=== PATIENT | male | born 1985 | race Two or more races ===

== ENCOUNTER 2018-06-19 06:06 | Emergency (ER) | payer OTHER ==
[~2018-06-19] VITALS: Ht 165.1 cm; Wt 68.0 kg
[2018-06-19 06:14] VITALS: BP 163/95
== END 2018-06-19 06:39 | disposition left against medical advice (07) ==
LOC: ER 06:06
DX: M79.641 Pain in right hand (principal); Z53.21 Procedure and treatment not carried out due to patient leaving prior to being seen by health care provider; W18.39XA Other fall on same level, initial encounter; Y93.89 Activity, other specified; Y92.89 Other specified places as the place of occurrence of the external cause; Y99.8 Other external cause status